=== PATIENT | male | born 1950 | race Caucasian/White ===

== ENCOUNTER 2017-06-03 20:05 | Inpatient (IN) | payer OTHER, MEDICARE ==
[~2017-06-03] VITALS: Ht 177.8 cm; Wt 64.0 kg
[2017-06-03 20:10] VITALS: BP 135/61; PULSE 99; RESP 22; TEMP 98; O2SAT 95
[2017-06-03 20:38] VITALS: BP 132/62; PULSE 107; RESP 26; O2SAT 92
[2017-06-03 20:39] VITALS: O2SAT 98
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
[2017-06-03] MEDS ORDERED: DONE5TAB7 PO (21:11)
[2017-06-03] MEDS ORDERED: PRED5TAB PO (21:11)
[2017-06-03] MEDS ORDERED: INSU100V2 SQ (21:11)
[2017-06-03] MEDS ORDERED: SIMV40TA PO (21:11)
[2017-06-03] MEDS ORDERED: LISI10TA3 PO (21:11)
[2017-06-03] MEDS ORDERED: LANTUS2P SQ (21:11)
[2017-06-03] MEDS ORDERED: LORA1TAB12 PO (21:11)
[2017-06-03] MEDS ORDERED: LAMI250T PO (21:11)
[2017-06-03] MEDS ORDERED: QUET1TAB7 PO ×2 (21:11)
[2017-06-03] MEDS ORDERED: VORI200T6 PO (21:11)
[2017-06-03] MEDS ORDERED: ATOR10TA15 PO (21:11)
[2017-06-03 21:25] LABS: AUTOMATED NEUTROPHIL # 7.7 TH/MM3 (1.8-7.7); BASOPHIL # 0.1 TH/MM3 (0-0.2); BASOPHIL % 0.6 % (0.0-2.0); EOSINOPHIL # 0.2 TH/MM3 (0-0.4); EOSINOPHIL % 1.8 % (0.0-4.0); HEMATOCRIT 37.2 % (39.0-51.0); HEMO FLAGS DIFF FINAL; LYMPH % 16.5 % (9.0-44.0); LYMPHOCYTE # 1.7 TH/MM3 (1.0-4.8); MEAN CELL VOLUME 91.8 FL (80.0-100.0); MEAN CORPUSCULAR HEMOGLOBIN 30.3 PG (27.0-34.0); NEUT % 74.1 % (16.0-70.0); PLATELET COUNT 407 TH/MM3 (150-450); RED BLOOD COUNT 4.06 MIL/MM3 (4.50-5.90); RED CELL DISTRIBUTION WIDTH 15.1 % (11.6-17.2); WHITE BLOOD COUNT 10.4 TH/MM3 (4.0-11.0)
[2017-06-03 21:35] LABS: ALT (GPT) 20 U/L (12-78); ANION GAP 8 MEQ/L (5-15); AST (GOT) 13 U/L (15-37); BICARBONATE 29.1 MEQ/L (21.0-32.0); BLOOD UREA NITROGEN 18 MG/DL (7-18); CHLORIDE 98 MEQ/L (98-107); GLOMERULAR FILTRATION RATE 94 ML/MIN (>89); POTASSIUM 3.5 MEQ/L (3.5-5.1); SODIUM (NA) 135 MEQ/L (136-145)
[2017-06-03 21:38] LABS: ALKALINE PHOSPHATASE 66 U/L (45-117); TOTAL BILIRUBIN ADULT 0.3 MG/DL (0.2-1.0)
[2017-06-03 21:41] LABS: ACETAMINOPHEN LESS THAN 2.0 MCG/ML (10.0-30.0)
[2017-06-03 22:00] VITALS: BP 110/60; PULSE 93; RESP 20; O2SAT 98
--- NOTE | 2017-06-03 22:27 | RADRPT ---
EXAM DATE/TIME: 06/03/2017 22:08 [facility] COMPARISON: No previous studies available for comparison. INDICATIONS : Cough and congestion. MEDICAL HISTORY : Chronic obstructive pulmonary disease. SURGICAL HISTORY : None. ENCOUNTER: Initial ACUITY: 2 days PAIN SCORE: 0/10 LOCATION: Bilateral chest FINDINGS: PA and lateral views of the chest demonstrate the lungs to be symmetrically aerated without evidence of mass, infiltrate or effusion. The cardiomediastinal contours are unremarkable. Osseous structure s are intact. CONCLUSION: No acute disease. Tomi Escoto Jr., MD on June 03, 2017 at 22:26 Board Certified Radiologist. This report was verified electronically.
[2017-06-03 22:28] LABS: BACTERIA, URINE RARE /hpf; BLOOD, URINE NEG (NEG); COMMENT (UR) CULT NOT INDICATED; CULTURE IF INDICATED CULT NOT INDICATED; GLUCOSE,URINE 1000 mg/dL (NEG); KETONE, URINE NEG (NEG); NITRITE,URINE NEG (NEG); SQUAMOUS EPITHELIAL CELL URINE 1 /hpf (0-5); URINE COLOR YELLOW (YELLW/STRAW)
[2017-06-04 01:00] VITALS: BP 105/55; PULSE 97; RESP 20; O2SAT 94
--- NOTE | 2017-06-04 05:15 | EKG ---
Date Performed: 06/03/2017 Time Performed: 20:41:33 PTAGE: 66 years EKG: Baseline artifact present SINUS TACHYCARDIA WITH OCCASIONAL SUPRAVENTRICULAR PREMATURE COMP LEXES POSSIBLE RIGHT VENTRICULAR CONDUCTION DELAY LEFT ANTERIOR FASCICULAR BLOCK ABNORMAL ECG NO PREVIOUS TRACING DOCTOR: Siddhartha Rankin Interpretating Date/Time 06/04/2017 05:13:43
[2017-06-04 06:00] VITALS: BP 102/59; PULSE 89; RESP 20; O2SAT 93
[2017-06-04 08:14] VITALS: BP 113/70; PULSE 85; RESP 26; O2SAT 89
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
[2017-06-04] MEDS ORDERED: ALUMINUM/MAGNESIUM/SIMETH 30 ML CUP PO PRN (12:00)
[2017-06-04] MEDS ORDERED: LORazepam 2 MG/ML VIAL IM PRN (12:00)
[2017-06-04] MEDS ORDERED: MAGNESIUM HYDROXIDE SUSP 30 ML CUP PO PRN (12:00)
[2017-06-04 12:19] VITALS: BP 108/60; PULSE 82; RESP 24; TEMP 98; O2SAT 99
--- NOTE | 2017-06-04 16:02 | PD.CONS ---
[facility] Request[facility] By Dr. Nugent from psychiatry service Reason for Consult Medical management history of COPD O2 dependent steroid dependent Diabetes type 2 insulin-requiring Primary Care Physician Natan Mota M.D. Diagnoses: History of Present Illness Patient is a 66-year-old male with history of diabetes type 2 insulin-requiring , hyperlipidemia, hypertension, COPD O2 dependent and steroid dependent on maintenance dose of prednisone 5 mg daily and O2 nasal cannula at 2 L, who looks older than stated age. His admitted on a voluntary basis under our psychiatry unit is up unit apparently patient was driving around the middle of the road in the community on a golf cart doing circles. Patient on exam is pleasant cooperative and is oriented 3. History discussed with patient and the son up on the phone. Apparently patient has been doing well O2 dependent steroid dependent COPD stable when when about 3 months prior to admission patient was admitted for nausea vomiting with diarrhea. Patient was found to be dehydrated and went into acute kidney injury with a very low sodium. since then per son has been in and out of the hospital 4 times. Family doesn't recall getting intubated though. son also states state that since then patient has been having deteriorating cognitively. He would go into violent behavior, will be noted to have increasing forgetfulness. son had workup done but however he was never told of the results of these tests. Patient also states history of psoriasis and was placed on Cosyntix shot 6 months ago once a month. And this apparently "kill my immune system." He develop fungal infection and was placed on voriconazole and Lamisil. On discussion with son patient has been in and out of the hospital for behavioral changes violent behavior increasing forgetfulness and last admission was about less than a week ago. Patient was transferred here to our med psych unit for further evaluation. At bedside patient is pleasant cooperative states still having diarrhea for the past 2 weeks now on and off. States that he had colonoscopy done in the [facility] for polyps were removed. Patient admitted here in our med psych unit for further evaluation. [facility] consulted for medical management of hypertension, diabetes type 2, COPD O2 and steroid dependent. Review of Systems Constitutional: DENIES: Diaphoretic episodes, Fatigue, Fever, Weight gain, Weight loss, Chills, Dizziness, Change in appetite, Night Sweats Endocrine: DENIES: Heat/cold intolerance, Polydipsia, Polyuria, Polyphagia Eyes: DENIES: Blurred vision, Diplopia, Eye inflammation, Eye pain, Vision loss , Photosensitivity, Double Vision Ears, nose, mouth, throat: DENIES: Tinnitus, Hearing loss, Vertigo, Nasal discharge, Oral lesions, Throat pain, Hoarseness, Ear Pain, Running Nose, Epistaxis, Sinus Pain, Toothache, Odynophagia Respiratory: COMPLAINS OF: Shortness of breath Cardiovascular: DENIES: Chest pain, Palpitations, Syncope, Dyspnea on Exertion , PND, Lower Extremity Edema, Orthopnea, Claudication Gastrointestinal: COMPLAINS OF: Diarrhea (on and off for the past 2 weeks), DENIES: Abdominal pain, Black stools, Bloody stools, Constipation, Nausea, Vomiting, Difficulty Swallowing, Anorexia Genitourinary: DENIES: Sexual dysfunction, Urinary frequency, Urinary incontinence, Urgency, Hematuria, Dysuria, Nocturia, Penile Discharge, Testicular Pain, Testicular Swelling Musculoskeletal: DENIES: Joint pain, Muscle aches, Stiffness, Joint Swelling, Back pain, Neck pain Integumentary: DENIES: Abnormal pigmentation, Nail changes, Pruritus, Rash Hematologic/lymphatic: DENIES: Bruising, Lymphadenopathy Immunologic/allergic: DENIES: Eczema, Urticaria Neurologic: DENIES: Abnormal gait, Headache, Localized weakness, Paresthesias, Seizures, Speech Problems, Tremor, Poor Balance Psychiatric: COMPLAINS OF: Depression, Agitation Past Family Social History Allergies: Coded Allergies: simvastatin (Verified Allergy, Unknown, 06/04/17) Past Medical History Hypertension COPD O2 dependent steroid dependent Diabetes type 2 insulin-requiring Fungal infection Past Surgical History Right elbow aspiration for some fluid years ago Reported Medications Currently on atorvastatin Lisinopril Seroquel Lorazepam Prednisone Lantus Humalog sliding scale Active Ordered Medications See EMR Family History Noncontributory Social History Drinks 12 beers a day Positive smoker quit recently Physical Exam Vital Signs Vital Signs Date Time Temp Pulse Resp B/P (MAP) Pulse Ox O2 Delivery O2 Flow Rate FiO2 06/04/17 12:19 Nasal Cannula 3.00 06/04/17 12:19 98.0 82 24 108/60 (76) 99 06/04/17 11:27 06/04/17 08:14 85 26 113/70 (84) 89 Room Air 06/04/17 06:00 89 20 102/59 (73) 93 Nasal Cannula 2.00 06/04/17 01:00 97 20 105/55 (72) 94 Nasal Cannula 06/03/17 22:00 93 20 110/60 (77) 98 Nasal Cannula 2.00 06/03/17 20:39 98 Nasal Cannula 2.00 06/03/17 20:38 107 26 132/62 (85) 92 Room Air 06/03/17 20:10 98.0 99 22 135/61 (85) 95 Room Air Physical Exam GENERAL: Awake alert oriented 3 no acute distress SKIN: Multiple superficial ecchymosis. HEAD: Atraumatic. Normocephalic. No temporal or scalp tenderness. EYES: Pupils equal round and reactive. Extraocular motions intact. No scleral icterus. No injection or drainage. ENT: Nose without bleeding, Throat without erythema, tonsillar hypertrophy or exudate. Uvula midline. Airway patent. NECK: Trachea midline. No JVD or lymphadenopathy. Supple, nontender, no meningeal signs. CARDIOVASCULAR: Regular rate and rhythm without murmurs, gallops, or rubs. RESPIRATORY: Decreased breath sounds bilaterally no wheezes no Rales GASTROINTESTINAL: Abdomen soft, non-tender, nondistended.. No guarding. MUSCULOSKELETAL: Extremities without clubbing, cyanosis, or edema. No joint tenderness, effusion, or edema noted. No calf tenderness. Negative Homans sign bilaterally. NEUROLOGICAL: Awake and alert. Cranial nerves II through XII intact. Motor and sensory grossly within normal limits. Five out of 5 muscle strength in all muscle groups. Normal speech. Laboratory Laboratory Tests Test 06/03/17 20:45 06/03/17 21:55 White Blood Count 10.4 Red Blood Count 4.06 Hemoglobin 12.3 Hematocrit 37.2 Mean Corpuscular Volume 91.8 Mean Corpuscular Hemoglobin 30.3 Mean Corpuscular Hemoglobin Concent 33.0 Red Cell Distribution Width 15.1 Platelet Count 407 Mean Platelet Volume 6.9 Neutrophils (%) (Auto) 74.1 Lymphocytes (%) (Auto) 16.5 Monocytes (%) (Auto) 7.0 Eosinophils (%) (Auto) 1.8 Basophils (%) (Auto) 0.6 Neutrophils # (Auto) 7.7 Lymphocytes # (Auto) 1.7 Monocytes # (Auto) 0.7 Eosinophils # (Auto) 0.2 Basophils # (Auto) 0.1 CBC Comment DIFF FINAL Differential Comment Blood Urea Nitrogen 18 Creatinine 0.82 Random Glucose 264 Total Protein 7.0 Albumin 3.0 Calcium Level 8.5 Alkaline Phosphatase 66 Aspartate Amino Transf (AST/SGOT) 13 Alanine Aminotransferase (ALT/SGPT) 20 Total Bilirubin 0.3 Sodium Level 135 Potassium Level 3.5 Chloride Level 98 Carbon Dioxide Level 29.1 Anion Gap 8 Estimat Glomerular Filtration Rate 94 Ammonia 20 Salicylates Level LESS THAN 1.7 Acetaminophen Level LESS THAN 2.0 Urine Color YELLOW Urine Turbidity CLEAR Urine pH 6.0 Urine Specific [place] 1.021 Urine Protein TRACE Urine Glucose (UA) 1000 Urine Ketones NEG Urine Occult Blood NEG Urine Nitrite NEG Urine Bilirubin NEG Urine Urobilinogen 2.0 Urine Leukocyte Esterase NEG Urine RBC 1 Urine WBC 3 Urine Squamous Epithelial Cells 1 Urine Amorphous Sediment RARE Urine Bacteria RARE Microscopic Urinalysis Comment CULT NOT INDICATED Urine Opiates Screen NEG Urine Barbiturates Screen NEG Urine Amphetamines Screen NEG Urine Benzodiazepines Screen NEG Urine Cocaine Screen NEG Urine Cannabinoids Screen NEG Result Diagram: 06/03/17204406/03/172044 Imaging Last Impressions Chest X-Ray 06/03/17 0000 Signed Impressions: Service Date/Time: Thursday, June 03, 2017 22:08 - CONCLUSION: No acute disease. Tomi Escoto Jr., MD Assessment and Plan Assessment and Plan 66-year-old male presenting with Acute Psychoses/delirium. Psychiatry following. Change in behavior since prolonged recurrent hospitalization On exam today patient is awake alert oriented and was able to give good history. Continue on cerebral. Management per psychiatry History of COPD O2 dependent and steroid dependent. We'll continue on O2 liters nasal cannula. Prednisone 5 mg daily maintenance dose. Per patient he was on pro-air and Advair. We'll restart metered-dose inhalers. History of fungal infection ? onychomycosis ? disseminated - ? Pulmonary source as patient was placed on systemic oral fungal medications. We'll need to get more information from previous admissions admissions from the [facility]. Requested son to come in tomorrow to sign release of medical information from previous hospitalizations. We will not start this medications Infectious disease specialist's service was consulted History of hyperlipidemia. Hypertension. Continue on lisinopril. Will ask nurse to verify as simvastatin listed as allergy area.however on review of medications is on atorvastatin. Diabetes type 2 insulin-requiring. Continue on Lantus 30 units at bedtime and Humalog sliding scale. Thank you for this consult we'll follow patient in-house with you Discussed Condition With Patient and son on the phone Damon Craig MD Jun 04, 2017 16:01
[2017-06-04] MEDS: ALBUTEROL SULFATE 90 MCG/ACT HFA 8 GM INHALER INH SCH (17:33)
[2017-06-04] MEDS: BUDESONIDE-FORMOTEROL 160/4.5 MCG INHALER INH SCH (17:34)
[2017-06-04 18:00] VITALS: BP 111/58; PULSE 81; RESP 18; TEMP 98.7; O2SAT 94
[2017-06-04] MEDS: QUEtiapine FUMARATE 25 MG TAB PO SCH (20:47)
[2017-06-04] MEDS: INSULIN DETEMIR 100 UNITS/ML VIAL SQ SCH (20:47)
[2017-06-04] MEDS ORDERED: VORICONAZOLE 200 MG TAB PO SCH (21:00)
[2017-06-04] MEDS ORDERED: TERBINAFINE 250 MG TAB PO SCH (21:00)
--- NOTE | 2017-06-04 21:47 | MB ---
cc: ARCHIE MORAN MD DATE OF CONSULTATION 06/04/[address] Nugent REASON FOR CONSULTATION The patient being treated with antifungal medication and prednisone. Please evaluate for mental status changes. HISTORY OF PRESENT ILLNESS This is a 66-year-old white male who was evaluated at the emergency department for altered mental status. The patient is unable to give me any meaningful information and therefore information is obtained from the medical record. He appears a little confused but could tell me that he has been receiving antifungal medication and he knew the name of the medicines, namely Voriconazole and also he has been on Diflucan for a fungal infection. He showed me his right forearm where he said there was an area with infection and he saw an ID doctor and gave me the name of the which is correct, in [place], who prescribed the medications for him. He tells me that the area is almost completely resolved. He reports to me that it was a patch of erythema. The patient is calm and cooperative. He is alert. He denies headache. He reportedly consumes alcohol and he also has history of COPD for which he gets treatment with prednisone. The patient has been noted in the medical record to have episodes of agitation and screaming episodes and that he screams profanities for hours. It is noted that he has lucid moments followed by these episodes. The patient was seen by Dr. Toure in [place]. I do not have information on the evaluation or workup that was performed. The patient tells me that he is going home tomorrow. PAST MEDICAL HISTORY COPD, oxygen-dependent, diabetes mellitus, hypertension, cataract surgery. ALLERGIES SIMVASTATIN. MEDICATIONS 1. Prinivil. 2. Prednisone 5 milligrams p.o. daily. 3. Levemir. 4. Seroquel. 5. Symbicort. 6. Albuterol inhaled. 7. Ativan p.r.n. SOCIAL HISTORY The patient smokes cigarettes. He drinks alcohol daily. Denies illicit drugs. FAMILY HISTORY Noncontributory. REVIEW OF SYSTEMS Negative on 10-point review except for the patient noting weight loss of 40 pounds over the past month. He also notes that he has had episodes of diarrhea and vomiting over the past few weeks. PHYSICAL EXAMINATION GENERAL: This is a frail-appearing cachectic male who is in no acute distress. He appears older than stated age. VITAL SIGNS: Include temperature of 98 degrees, BP 108/60, respirations 24, heart rate 82. HEENT: Head is atraumatic. Extraocular movements grossly intact, pupils reactive to light. No icterus. Oropharynx moist mucosa without lesions. NECK: Supple. No adenopathy. LUNGS: Bilateral wheezing. HEART: Regular S1-S2 without audible murmurs. No rubs or gallops. ABDOMEN: Flat, soft, no tenderness appreciated. RECTAL: Not performed. EXTREMITIES: No clubbing or cyanosis or edema. The patient has dried tree bark fissured chronic skin changes of the tibias. Multiple ecchymotic areas at the upper extremities. Also, the patient has multiple tiny excoriated scabs on the arms. No edema. Diffuse muscle wasting. SKIN: No diffuse rash. NEUROLOGIC: Patient alert and oriented. Grossly nonfocal. LABORATORY DATA WBC 10.4, platelets 407, 74% neutrophils, hemoglobin 12.3, creatinine 0.82, BUN 18, sodium 135. Liver function tests normal. IMAGING STUDIES Chest x-ray no acute disease. IMPRESSION Altered mental status. Uncertain etiology. I doubt the patient has an infectious etiology to his altered mental status given the fact that he has no fever, headache or elevated white blood cell count. He also has been on antifungal medicine for fungal skin infection at the right forearm which should not cause alteration in the mental status. It is not clear how long he was supposed to be on the antifungal medication. However, at this point given the appearance of his arm I doubt he needs continued antifungal treatment. If there is concern over a potential infection causing his altered mental status a consideration may be given to lumbar puncture for further evaluation and testing for syphilis. The patient is noted to consume lots of alcohol which could be contributing to his mental status issues and he also has severe COPD which may be contributing as well. At this point I do not think I have anything significant to add on this patient. However, I will try to contact his infectious disease caregiver in [place] and try to find out some more information about the Voriconazole treatment and whether or not other medical issues were entertained while treating him for fungal infection. Thank you for this consultation. If I find out any information that is pertinent I will follow the patient. Otherwise, I can be reconsulted if necessary. Archie Moran MD FD/ERASMO /5:50 PM /9:32 PM [email or web address]
[2017-06-05] MEDS: ALBUTEROL SULFATE 90 MCG/ACT HFA 8 GM INHALER INH SCH ×4 (06:09→17:33)
[2017-06-05] MEDS: ACETAMINOPHEN 325 MG TAB PO PRN ×2 (06:12→17:40)
[2017-06-05 06:16] VITALS: BP 120/57; PULSE 107; RESP 18; TEMP 97.5
[2017-06-05 06:30] VITALS: O2SAT 94
[2017-06-05] MEDS: predniSONE 5 MG TAB PO SCH (08:22)
[2017-06-05] MEDS: LISINOPRIL 10 MG TAB PO SCH (08:22)
[2017-06-05] MEDS: BUDESONIDE-FORMOTEROL 160/4.5 MCG INHALER INH SCH ×2 (08:22→21:00)
[2017-06-05] MEDS ORDERED: PNEUMOCOCCAL POLYVALENT INJ 25 MCG/0.5 ML SYR IM ONE (10:00)
[2017-06-05] MEDS ORDERED: INFLUENZA VIRUS VACCINE (QUADRIVALENT) 0.5 ML SYR IM ONE (10:00)
[2017-06-05 10:08] LABS: AUTOMATED NEUTROPHIL # 4.5 TH/MM3 (1.8-7.7); BASOPHIL # 0.1 TH/MM3 (0-0.2); BASOPHIL % 0.8 % (0.0-2.0); EOSINOPHIL # 0.3 TH/MM3 (0-0.4); EOSINOPHIL % 3.7 % (0.0-4.0); HEMATOCRIT 34.6 % (39.0-51.0); HEMO FLAGS DIFF FINAL; LYMPHOCYTE # 1.4 TH/MM3 (1.0-4.8); MEAN CELL VOLUME 92.2 FL (80.0-100.0); MEAN CORPUSCULAR HEMOGLOBIN 30.7 PG (27.0-34.0); MEAN CORPUSCULAR HGB CONC 33.3 % (32.0-36.0); MONO % 9.3 % (0.0-8.0); NEUT % 65.2 % (16.0-70.0); PLATELET COUNT 338 TH/MM3 (150-450); RED BLOOD COUNT 3.75 MIL/MM3 (4.50-5.90); RED CELL DISTRIBUTION WIDTH 15.3 % (11.6-17.2); WHITE BLOOD COUNT 6.9 TH/MM3 (4.0-11.0)
[2017-06-05] MEDS ORDERED: LORazepam 2 MG TAB PO PRN (10:30)
[2017-06-05] MEDS ORDERED: LORazepam 2 MG/ML VIAL IV PUSH PRN ×4 (10:30)
[2017-06-05] MEDS ORDERED: FLUMAZENIL 0.5 MG/5 ML VIAL IV PUSH PRN (10:30)
[2017-06-05] MEDS ORDERED: LORazepam 1 MG TAB PO PRN (10:30)
[2017-06-05 10:48] LABS: ANION GAP 5 MEQ/L (5-15); AST (GOT) 9 U/L (15-37); BICARBONATE 33.1 MEQ/L (21.0-32.0); BLOOD UREA NITROGEN 12 MG/DL (7-18); CHLORIDE 99 MEQ/L (98-107); GLOMERULAR FILTRATION RATE 130 ML/MIN (>89); POTASSIUM 3.7 MEQ/L (3.5-5.1); SODIUM (NA) 137 MEQ/L (136-145)
[2017-06-05 11:07] LABS: ALKALINE PHOSPHATASE 54 U/L (45-117); ALT (GPT) 17 U/L (12-78); HDL CHOLESTEROL 40.3 MG/DL (40.0-60.0); LDL CHOLESTEROL 49 MG/DL (0-99)
[2017-06-05 11:11] LABS: TOTAL BILIRUBIN ADULT 0.5 MG/DL (0.2-1.0)
--- NOTE | 2017-06-05 14:40 | HHI.PR ---
Subjective Remarks no complains of pain- "just dry skin" denies any diarrhea good po Objective Vitals Vital Signs Date Time Temp Pulse Resp B/P (MAP) Pulse Ox O2 Delivery O2 Flow Rate FiO2 06/05/17 09:00 Nasal Cannula 3.00 06/05/17 07:30 16 06/05/17 06:30 94 06/05/17 06:16 97.5 107 18 120/57 (78) 06/04/17 18:00 98.7 81 18 111/58 (75) 94 I/O 06/04/17 06/04/17 06/04/17 06/05/17 06/05/17 06/05/17 07:00 15:00 23:00 07:00 15:00 23:00 Intake Total 240 ml 840 ml 180 ml 720 ml Balance 240 ml 840 ml 180 ml 720 ml Intake Oral 240 ml 840 ml 180 ml 720 ml # Voids 2 1 # Bowel Movements 1 1 Result Diagram: 06/05/17 0935 06/05/17 0935 Imaging Last Impressions Chest X-Ray 06/03/17 0000 Signed Impressions: Service Date/Time: Saturday, June 03, 2017 22:08 - CONCLUSION: No acute disease. Tomi Escoto Jr., MD Objective Remarks awake and alert, no acute distress, on 2 LNC very dry skin anicteric lungs- no rales or wheezes regular rhythm abdmen soft extremities no edmea A/P Assessment and Plan 66-year-old male presenting with Acute Psychoses/delirium. - improved Psychiatry following. History of COPD O2 dependent and steroid dependent. We'll continue on O2 liters nasal cannula. Prednisone 5 mg daily maintenance dose. Per patient he was on pro-air and Advair. continue MDIs History of fungal infection ? onychomycosis ? disseminated - ? Pulmonary source as patient was placed on systemic oral fungal medications. We'll need to get more information from previous admissions admissions from the [facility]. Requested son to come in tomorrow to sign release of medical information from previous hospitalizations. We will not start this medications appreciate Dr. cerda seeing patient History of hyperlipidemia. Hypertension. Continue on lisinopril. Will ask nurse to verify as simvastatin listed as allergy area.however on review of medications is on atorvastatin. Diabetes type 2 insulin-requiring. Continue on Lantus 30 units at bedtime and Humalog sliding scale. good readings. a1C pending patient up and ambulating Damon Craig MD Jun 05, 2017 14:40
--- NOTE | 2017-06-05 15:14 | HHI.PYPN ---
Subjective Remarks Patient seen for follow-up, chart reviewed. Patient is a 66 y/o man, , unemployed on social security benefits, domiciled with , with past psychiatric history of bipolar disorder and anxiety as per patient, prior psychiatric hospitalization, no prior suicide attempts or self injurious behavior who was brought in by due to behavioral changes over the last three months, admitted to the ICU for COPD, and noted to have multiple episodes of confusion, episodes of agitation and screaming in the context of recently started antifungal medications and steroids which he was transferred to the medical/psychiatry unit for further evaluation and management. Patient was found lying on the hospital bed, calm and cooperative with interview. Patient states that he was feeling "better than I was..I was feeling cloudy a couple of months ago. He states that his had brought him to the hospital because he was noted to be forgetful, and "I wanted to fight everybody..but that's not like me". He reports having episodes of "screaming and hollering...I couldn't stop it" but reports being aware when he was doing it. He reports it last happened a couple of days ago. He reports having had decreased sleep, racing thougts (last time being 1-2 days ago), decreased energy and concentriaon, no change in appetite, "normal" mood. He also endorsed having had SI for the past 1-2 months and also having tried to cut himself a couple of days ago. Currently he denies SI but last time was yesterday, denies HI, AVH or delusions at this time. Family psychiatric history: reports bipolar and depression in the famly but unspecified who, denies suicides in the family Past psychiatric history: bipolar disorder, anxiety as per patient, one prior psychiatric admisssion ("years ago"), no prior SA or self injurious behavior, no history of abuse. Reports outpatient provider, Dr. Iraheta, last seen 2 weeks ago. Recent medications: lorazepam, venlafaxine, depakote - which he last took one week ago. Substance use history: ETOH daily about 12 beers, Tobacco (+), denies use of any other substance. Past medical history: HTN, COPD, DM, reports history psoriasis on Cogintix monthly IM for the past 12 months, on Voriconazole and Lamisil Allergies: simvastatin Social history: , two children, unemployed on social [employer] benefits, domiciled with , highest education: 9th grade. Denies any legal history. Review of Systems Except as stated in HPI: all other systems reviewed are Neg Mental Status Examination Appearance: Appropriate Consciousness: Alert Orientation: x4 Motor Activity: Normal gait Speech: Unremarkable Language: Adequate Fund of Knowledge: Adequate Attention and Concentration: Adequate Memory: Unremarkable Mood: Anxious Affect: Anxious Thought Process & Associations: Intact, Linear Thought Content: Appropriate Hallucination Type: None Delusion Type: None Suicidal Ideation: Yes (denies today) Suicidal Plan: No Suicidal Intention: No Homicidal Ideation: No Homicidal Plan: No Homicidal Intention: No Insight: Fair Judgment: Impulsive Results Labs labs reviewed Test 06/05/17 09:35 White Blood Count 6.9 TH/MM3 Red Blood Count 3.75 MIL/MM3 Hemoglobin 11.5 GM/DL Hematocrit 34.6 % Mean Corpuscular Volume 92.2 FL Mean Corpuscular Hemoglobin 30.7 PG Mean Corpuscular Hemoglobin Concent 33.3 % Red Cell Distribution Width 15.3 % Platelet Count 338 TH/MM3 Mean Platelet Volume 6.6 FL Neutrophils (%) (Auto) 65.2 % Lymphocytes (%) (Auto) 21.0 % Monocytes (%) (Auto) 9.3 % Eosinophils (%) (Auto) 3.7 % Basophils (%) (Auto) 0.8 % Neutrophils # (Auto) 4.5 TH/MM3 Lymphocytes # (Auto) 1.4 TH/MM3 Monocytes # (Auto) 0.6 TH/MM3 Eosinophils # (Auto) 0.3 TH/MM3 Basophils # (Auto) 0.1 TH/MM3 CBC Comment DIFF FINAL Differential Comment Blood Urea Nitrogen 12 MG/DL Creatinine 0.62 MG/DL Random Glucose 160 MG/DL Total Protein 6.1 GM/DL Albumin 2.6 GM/DL Calcium Level 8.3 MG/DL Alkaline Phosphatase 54 U/L Aspartate Amino Transf (AST/SGOT) 9 U/L Alanine Aminotransferase (ALT/SGPT) 17 U/L Total Bilirubin 0.5 MG/DL Sodium Level 137 MEQ/L Potassium Level 3.7 MEQ/L Chloride Level 99 MEQ/L Carbon Dioxide Level 33.1 MEQ/L Anion Gap 5 MEQ/L Estimat Glomerular Filtration Rate 130 ML/MIN Triglycerides Level 141 MG/DL Cholesterol Level 117 MG/DL LDL Cholesterol 49 MG/DL HDL Cholesterol 40.3 MG/DL Cholesterol/HDL Ratio 2.90 RATIO Vitamin B12 Level 260 PG/ML 25-Hydroxy Vitamin D Total 20.3 ng/ML Thyroid Stimulating Hormone 3rd Gen 0.725 uIU/ML Rapid Plasma Reagin NON-REACTIVE Vitals/IOs Vital Signs Date Time Temp Pulse Resp B/P (MAP) Pulse Ox O2 Delivery O2 Flow Rate FiO2 06/05/17 09:00 Nasal Cannula 3.00 06/05/17 07:30 16 06/05/17 06:30 94 06/05/17 06:16 97.5 107 120/57 (78) Intake and Output 06/05/17 06/05/17 06/06/17 08:00 16:00 00:00 Intake Total 180 ml 720 ml Balance 180 ml 720 ml Assessment & Plan Problem List: (1) Unspecified psychosis ICD Codes: F29 - Unspecified psychosis not due to a substance or known physiological condition Assessment & Plan Patient is a 66 y/o man with reported history of bipolar disorder and anxiety who was noted to have episodes of agitation, screaming for the past several months which he was brought in by , admittted to the ICU for COPD, and subsequently transferred to the medical/psychiatry unit for further management. Patient at this time endorses recent SI and some depressive symptoms but has not exhibited episodes of screaming or agitation. He denies any perceptual disturbances at this time. Continue current treatment for now. Recommendations as per primary medical team. Collateral information pending for recent medicatione regimen and recent events prior to admission. Discharge planning in progress. Justification for Cont. Inpt. At risk for further decompensation if at lower level of care Discharge Planning Patient to return back to residence once medically and psychiatrically clear. Hayden Sam MD Jun 05, 2017 15:14
[2017-06-05 16:03] LABS: HEMOGLOBIN A1a 0.9 %; HEMOGLOBIN A1b 2.1 %; HEMOGLOBIN Ao 82.7 %; HEMOGLOBIN LA1C 2.8 %; HEMOGLOBIN P3 5.8 %
[2017-06-05 18:00] VITALS: BP 90/54; PULSE 87; RESP 18; TEMP 97.8; O2SAT 97
--- NOTE | 2017-06-05 18:01 | EKG ---
Date Performed: 06/05/2017 Time Performed: 07:44:36 PTAGE: 66 years EKG: Sinus rhythm WITH OCCASIONAL SUPRAVENTRICULAR PREMATURE COMPLEXES MARKED LEFT AXIS DEVIATION INCOMPLETE RIGHT BUN DLE BRANCH BLOCK ABNORMAL ECG PREVIOUS TRACING : 06/03/2017 20.41 DOCTOR: Ferdinand Henderson Interpretating Date/Time 06/05/2017 17:58:31
[2017-06-05] MEDS: LACTIC ACID (AMMONIUM LACTATE) 12% LOTION 225 GM BTL TOPICAL SCH (21:00)
[2017-06-05] MEDS: QUEtiapine FUMARATE 25 MG TAB PO SCH (21:00)
[2017-06-05] MEDS: INSULIN DETEMIR 100 UNITS/ML VIAL SQ SCH (21:00)
[2017-06-06 05:04] VITALS: BP 106/67; PULSE 95; RESP 16; TEMP 98.1; O2SAT 98
[2017-06-06] MEDS: ALBUTEROL SULFATE 90 MCG/ACT HFA 8 GM INHALER INH SCH ×4 (06:00→18:05)
[2017-06-06] MEDS: LACTIC ACID (AMMONIUM LACTATE) 12% LOTION 225 GM BTL TOPICAL SCH ×2 (08:51→22:35)
[2017-06-06] MEDS: LISINOPRIL 10 MG TAB PO SCH (08:51)
[2017-06-06] MEDS: predniSONE 5 MG TAB PO SCH (08:51)
[2017-06-06] MEDS: BUDESONIDE-FORMOTEROL 160/4.5 MCG INHALER INH SCH ×2 (08:51→20:35)
--- NOTE | 2017-06-06 13:46 | HHI.PR ---
Subjective Remarks states he feels "great" no complains good po Objective Vitals Vital Signs Date Time Temp Pulse Resp B/P (MAP) Pulse Ox O2 Delivery O2 Flow Rate FiO2 06/06/17 09:59 Nasal Cannula 3.00 06/06/17 05:04 98.1 95 16 106/67 (80) 98 06/05/17 20:00 Nasal Cannula 3.00 06/05/17 18:00 97.8 87 18 90/54 (66) 97 I/O 06/05/17 06/05/17 06/05/17 06/06/17 06/06/17 06/06/17 07:00 15:00 23:00 07:00 15:00 23:00 Intake Total 180 ml 720 ml 840 ml 0 ml 480 ml Output Total 1000 ml Balance 180 ml 720 ml 840 ml -1000 ml 480 ml Intake Oral 180 ml 720 ml 840 ml 0 ml 480 ml Output Urine Total 1000 ml # Voids 1 1 # Bowel Movements 1 Result Diagram: 06/05/17 0935 06/05/17 0935 Imaging Last Impressions Chest X-Ray 06/03/17 0000 Signed Impressions: Service Date/Time: Saturday, June 03, 2017 22:08 - CONCLUSION: No acute disease. Tomi Escoto Jr., MD Objective Remarks awake and alert, no acute distress, on 02 2 LNC very dry skin anicteric lungs- no rales or wheezes regular rhythm abdomen soft extremities no edema A/P Assessment and Plan 66-year-old male presenting with Acute Psychoses/delirium. - improved Psychiatry following. History of COPD O2 dependent and steroid dependent. We'll continue on O2 liters nasal cannula. Prednisone 5 mg daily maintenance dose. Per patient he was on pro-air and Advair. continue MDIs History of fungal infection ? onychomycosis ? disseminated - ? Pulmonary source as patient was placed on systemic oral fungal medications. We'll need to get more information from previous admissions admissions from the [facility]. Requested son to come in tomorrow to sign release of medical information from previous hospitalizations. We will not start this medications appreciate Dr. cerda seeing patient History of hyperlipidemia. Hypertension. Continue on lisinopril. Will ask nurse to verify as simvastatin listed as allergy area.however on review of medications is on atorvastatin. Diabetes type 2 insulin-requiring. Continue on Lantus 30 units at bedtime and Humalog sliding scale. good readings. a1C 6.8 one time reading today of 216. will continue regimen and monitor Hypocalcemia/low Vitamin D level start oscal + Vit D daily patient up and ambulating Damon Craig MD Jun 06, 2017 13:46
[2017-06-06] MEDS ORDERED: LOW DOSE INSULIN NOVOLOG SUPPLEMENTAL SCALE SQ SCH (14:38)
[2017-06-06] MEDS ORDERED: PLEASE DISCONTINUE PREVIOUS SUPPLEMENTAL SCALE INSULIN ORDERS ONE (14:45)
[2017-06-06] MEDS ORDERED: GLUCAGON 1 MG/ML VIAL OTHER PRN (14:45)
[2017-06-06] MEDS ORDERED: DEXTROSE 50% IN WATER 50 ML VIAL(D50) IV PUSH PRN (14:45)
--- NOTE | 2017-06-06 15:33 | HHI.PYPN ---
Subjective Remarks Patient was seen and case discussed with nursing. Pt is irritable blaming his family for his circumstances. He remains on the CIWA scale, no tremor, visual hallucinating, change in mental status or elevated vital signs. Denies AH/VH/SI /HI Mental Status Examination Appearance: Appropriate Consciousness: Alert Orientation: x4 Motor Activity: Normal gait Speech: Unremarkable Language: Adequate Fund of Knowledge: Adequate Attention and Concentration: Adequate Memory: Unremarkable Mood: Oppositional, Anxious Affect: Anxious Thought Process & Associations: Intact, Linear Thought Content: Appropriate Hallucination Type: None Delusion Type: None Suicidal Ideation: Yes (denies today) Suicidal Plan: No Suicidal Intention: No Homicidal Ideation: No Homicidal Plan: No Homicidal Intention: No Insight: Fair Judgment: Impulsive Results Vitals/IOs Vital Signs Date Time Temp Pulse Resp B/P (MAP) Pulse Ox O2 Delivery O2 Flow Rate FiO2 06/06/17 09:59 Nasal Cannula 3.00 06/06/17 05:04 98.1 95 16 106/67 (80) 98 Intake and Output 06/06/17 06/06/17 06/07/17 08:00 16:00 00:00 Intake Total 240 ml 240 ml Output Total 1000 ml Balance -760 ml 240 ml Assessment & Plan Problem List: (1) Unspecified psychosis ICD Codes: F29 - Unspecified psychosis not due to a substance or known physiological condition Assessment & Plan Continue current treatment plan Justification for Cont. Inpt. Patient would decompensate in a less restricting setting. Gerber Blakely DO Jun 06, 2017 15:33
[2017-06-06] MEDS ORDERED: INSULIN ASPART 1,000 UNITS/10 ML VIAL SQ SCH (17:00)
[2017-06-06 18:00] VITALS: BP 109/56; PULSE 85; RESP 16; TEMP 98.2; O2SAT 98
[2017-06-06] MEDS: ACETAMINOPHEN 325 MG TAB PO PRN (20:35)
[2017-06-06] MEDS: QUEtiapine FUMARATE 25 MG TAB PO SCH (20:35)
[2017-06-06] MEDS: LORazepam 1 MG TAB PO PRN (20:40)
[2017-06-06] MEDS: INSULIN DETEMIR 100 UNITS/ML VIAL SQ SCH (20:44)
[2017-06-06] MEDS ORDERED: ZOLPIDEM TARTRATE 10 MG TAB PO ONE (22:30)
[2017-06-07] MEDS: ALBUTEROL SULFATE 90 MCG/ACT HFA 8 GM INHALER INH SCH ×4 (05:50→17:54)
[2017-06-07 06:31] VITALS: BP 91/52; PULSE 116; RESP 18; TEMP 97.5; O2SAT 93
[2017-06-07] MEDS: LOW DOSE INSULIN NOVOLOG SUPPLEMENTAL SCALE SQ SCH ×2 (08:00→16:00)
[2017-06-07] MEDS: predniSONE 5 MG TAB PO SCH (10:04)
[2017-06-07] MEDS: LACTIC ACID (AMMONIUM LACTATE) 12% LOTION 225 GM BTL TOPICAL SCH ×2 (10:04→20:41)
[2017-06-07] MEDS: CALCIUM/VITAMIN D 250 MG/125 U TAB PO SCH (10:05)
[2017-06-07] MEDS: BUDESONIDE-FORMOTEROL 160/4.5 MCG INHALER INH SCH ×2 (10:05→20:42)
[2017-06-07] MEDS: LISINOPRIL 10 MG TAB PO SCH (10:05)
--- NOTE | 2017-06-07 12:08 | HHI.PR ---
Subjective Remarks patient denies hearing voices pleasant and cooperative up and ambulating on the hallways Objective Vitals Vital Signs Date Time Temp Pulse Resp B/P (MAP) Pulse Ox O2 Delivery O2 Flow Rate FiO2 06/07/17 06:31 97.5 116 18 91/52 (65) 93 06/06/17 22:58 Nasal Cannula 06/06/17 18:00 98.2 85 16 109/56 (73) 98 I/O 06/06/17 06/06/17 06/06/17 06/07/17 06/07/17 06/07/17 07:00 15:00 23:00 07:00 15:00 23:00 Intake Total 0 ml 480 ml 1560 ml 240 ml Output Total 1000 ml 1 ml Balance -1000 ml 480 ml 1559 ml 240 ml Intake Oral 0 ml 480 ml 1560 ml 240 ml Output Urine Total 1000 ml 1 ml # Voids 1 3 Result Diagram: 06/05/17 0935 06/05/17 0935 Imaging Last Impressions Chest X-Ray 06/03/17 0000 Signed Impressions: Service Date/Time: Saturday, June 03, 2017 22:08 - CONCLUSION: No acute disease. Tomi Escoto Jr., MD Objective Remarks awake and alert, no acute distress, on 2 LNC very dry skin anicteric lungs- no rales or wheezes regular rhythm abdomen soft extremities no edema A/P Assessment and Plan 66-year-old male presenting with Acute Psychoses/delirium. - Resolved Psychiatry following. History of COPD O2 dependent and steroid dependent. We'll continue on O2 liters nasal cannula. Prednisone 5 mg daily maintenance dose. Per patient he was on pro-air and Advair. continue MDIs History of fungal infection ? onychomycosis ? disseminated - ? Pulmonary source as patient was placed on systemic oral fungal medications. We'll need to get more information from previous admissions admissions from the [facility]. Requested son to come in tomorrow to sign release of medical information from previous hospitalizations.- will ask nurse to ff up tomorrow- Thursday We will not start this medications appreciate Dr. Moran seeing patient History of hyperlipidemia. Hypertension. Continue on lisinopril. Will ask nurse to verify as simvastatin listed as allergy area.however on review of medications is on atorvastatin. Diabetes type 2 insulin-requiring. Continue on Lantus 30 units at bedtime and Humalog sliding scale. good readings. A1C 6.8 good lipid panel Hypocalcemia/low Vitamin D level Oscal + Vit D daily patient up and ambulating Damon Craig MD Jun 07, 2017 12:08
--- NOTE | 2017-06-07 16:11 | HHI.PYPN ---
Subjective Remarks Patient was seen and case discussed with nursing. Pt had a visit from his who left in tears. Pt was seen arguing with her. Pt is irritable during the interview blaming her and his family for his admission. Insight is very poor, minimizes his history. No outbursts with staff, tolerating medication well. Mental Status Examination Appearance: Appropriate Consciousness: Alert Orientation: x4 Motor Activity: Normal gait Speech: Unremarkable Language: Adequate Fund of Knowledge: Adequate Attention and Concentration: Adequate Memory: Unremarkable Mood: Oppositional, Anxious Affect: Irritable Thought Process & Associations: Intact, Linear Thought Content: Appropriate Hallucination Type: None Delusion Type: None Suicidal Ideation: No Suicidal Plan: No Suicidal Intention: No Homicidal Ideation: No Homicidal Plan: No Homicidal Intention: No Insight: Fair Judgment: Impulsive Results Vitals/IOs Vital Signs Date Time Temp Pulse Resp B/P (MAP) Pulse Ox O2 Delivery O2 Flow Rate FiO2 06/07/17 06:31 97.5 116 18 91/52 (65) 93 06/06/17 22:58 Nasal Cannula 06/06/17 09:59 3.00 Intake and Output 06/07/17 06/07/17 06/08/17 08:00 16:00 00:00 Intake Total 240 ml Balance 240 ml Assessment & Plan Problem List: (1) Unspecified psychosis ICD Codes: F29 - Unspecified psychosis not due to a substance or known physiological condition Assessment & Plan Continue current treatment plan Justification for Cont. Inpt. Pt would decompensate in a less restrictive setting Gerber Blakely DO Jun 07, 2017 16:10
[2017-06-07 18:00] VITALS: BP 105/61; PULSE 85; RESP 18; TEMP 98; O2SAT 94
[2017-06-07] MEDS: QUEtiapine FUMARATE 25 MG TAB PO SCH (20:41)
[2017-06-07] MEDS: LORazepam 1 MG TAB PO PRN (20:41)
[2017-06-07] MEDS: INSULIN DETEMIR 100 UNITS/ML VIAL SQ SCH (20:54)
[2017-06-08] MEDS: ALBUTEROL SULFATE 90 MCG/ACT HFA 8 GM INHALER INH SCH ×4 (05:45→16:37)
[2017-06-08] MEDS: ACETAMINOPHEN 325 MG TAB PO PRN (05:45)
[2017-06-08 06:24] VITALS: BP 89/51; PULSE 87; RESP 16; TEMP 97.6; O2SAT 99
[2017-06-08] MEDS: LOW DOSE INSULIN NOVOLOG SUPPLEMENTAL SCALE SQ SCH ×2 (07:28→11:17)
[2017-06-08] MEDS: LISINOPRIL 10 MG TAB PO SCH (07:40)
[2017-06-08] MEDS: LACTIC ACID (AMMONIUM LACTATE) 12% LOTION 225 GM BTL TOPICAL SCH ×2 (09:00→20:46)
[2017-06-08] MEDS: CALCIUM/VITAMIN D 250 MG/125 U TAB PO SCH (09:18)
[2017-06-08] MEDS: BUDESONIDE-FORMOTEROL 160/4.5 MCG INHALER INH SCH ×2 (09:18→20:47)
[2017-06-08] MEDS: predniSONE 5 MG TAB PO SCH (09:18)
--- NOTE | 2017-06-08 14:21 | HHI.PR ---
Subjective Remarks doing great feels great good readings up and ambulating Objective Vitals Vital Signs Date Time Temp Pulse Resp B/P (MAP) Pulse Ox O2 Delivery O2 Flow Rate FiO2 06/08/17 10:52 93 Nasal Cannula 2.00 06/08/17 06:24 97.6 87 16 89/51 (64) 99 06/08/17 01:58 93 Nasal Cannula 3.00 06/07/17 18:00 98.0 85 18 105/61 (76) 94 I/O 06/07/17 06/07/17 06/07/17 06/08/17 06/08/17 06/08/17 07:00 15:00 23:00 07:00 15:00 23:00 Intake Total 240 ml 1200 ml 360 ml Balance 240 ml 1200 ml 360 ml Intake Oral 240 ml 1200 ml 360 ml # Voids 3 5 3 # Bowel Movements 1 Result Diagram: 06/05/17 0935 06/05/17 0935 Imaging Last Impressions Chest X-Ray 06/03/17 0000 Signed Impressions: Service Date/Time: Saturday, June 03, 2017 22:08 - CONCLUSION: No acute disease. Tomi Escoto Jr., MD Objective Remarks awake and alert, no acute distress, on 2 LNC very dry skin anicteric lungs- no rales or wheezes regular rhythm abdomen soft extremities no edema A/P Assessment and Plan 66-year-old male presenting with Acute Psychoses/delirium. - Resolved Psychiatry following. History of COPD O2 dependent and steroid dependent. We'll continue on O2 liters nasal cannula. Prednisone 5 mg daily maintenance dose. Per patient he was on pro-air and Advair. continue MDIs History of fungal infection ? onychomycosis ? disseminated - ? Pulmonary source as patient was placed on systemic oral fungal medications. We'll need to get more information from previous admissions admissions from the [facility]. Requested son to come in tomorrow to sign release of medical information from previous hospitalizations.- will ask nurse to ff up tomorrow- Thursday We will not start this medications appreciate Dr. Moran seeing patient- will not start any meds History of hyperlipidemia. Hypertension. Continue on lisinopril. Will ask nurse to verify as simvastatin listed as allergy area.however on review of medications is on atorvastatin. Diabetes type 2 insulin-requiring. Continue on Lantus 30 units at bedtime and Humalog sliding scale. good readings. A1C 6.8 good lipid panel Hypocalcemia/low Vitamin D level Oscal + Vit D daily patient up and ambulating confirmed + allergy to zocor HHH sings off If DC continue home meds + Ca + VIt ff up with PCP- Damon Matthew MD Jun 08, 2017 14:21
--- NOTE | 2017-06-08 14:23 | PD.TTN ---
Patient Problems 1. Discharge planning 2. Medication compliance 3. Knowledge deficit 4. Lack of coping skills Progress Toward Goals Provider Input: Patient is reaching stabization, would like counselor to contact patient's to assess safety concerns Psychiatric Counselors Present: MINERVA Regalado Psych Therapist Input: Counselor will reachout to patient's , discuss discharge issues with patient and his Group Spec/RT/OT/PINZON Present: Bronson Stein OT Group Spec/RT/OT/PINZON Input: Patient has not attended groups or activities Documentation Scribe: MINERVA Regalado Sandra LMHC Jun 08, 2017 14:23
--- NOTE | 2017-06-08 16:23 | HHI.PYPN ---
Subjective Remarks Patient seen follow, chart reviewed. Discussion with nursing staff reported that patient has been eating, no behavioral dyscontrol since admission, no episodes of agitation. Patient found sitting in hospital bed, cooperative. Patient states that his weekend have been "good" and recalls having had argued with his last evening stating "she don't care how I'm doing". Patient denies any sedative depressive symptoms, denies any manic or psychotic symptoms at this time. Patient denies SI, HI, AVH or delusions. Patient states that he is tolerating medications well and denies any adverse drug reactions. Patient reports being aware of his previous behavior prior to his admission and states that he no longer feels that way. Review of Systems Except as stated in HPI: all other systems reviewed are Neg Mental Status Examination Appearance: Appropriate Consciousness: Alert Orientation: x4 Motor Activity: Normal gait Speech: Unremarkable Language: Adequate Fund of Knowledge: Adequate Attention and Concentration: Adequate Memory: Unremarkable Mood: Appropriate Affect: Appropriate Thought Process & Associations: Intact, Linear Thought Content: Appropriate Hallucination Type: None Delusion Type: None Suicidal Ideation: No Suicidal Plan: No Suicidal Intention: No Homicidal Ideation: No Homicidal Plan: No Homicidal Intention: No Insight: Fair Judgment: Impulsive Results Vitals/IOs Vital Signs Date Time Temp Pulse Resp B/P (MAP) Pulse Ox O2 Delivery O2 Flow Rate FiO2 06/08/17 10:52 93 Nasal Cannula 2.00 06/08/17 06:24 97.6 87 16 89/51 (64) Intake and Output 06/08/17 06/08/17 06/09/17 08:00 16:00 00:00 Intake Total 1200 ml Balance 1200 ml Assessment & Plan Problem List: (1) Unspecified psychosis ICD Codes: F29 - Unspecified psychosis not due to a substance or known physiological condition Assessment & Plan Patient at this time has not had any behavioral dyscontrol since admission, no episodes of screaming or agitation as reported prior to his admission, without endorsed any mood symptoms or psychotic symptoms. We'll continue current treatment regimen with possible discharge tomorrow back to . Discharge planning in progress. Justification for Cont. Inpt. At risk for further decompensation if at lower level of care Discharge Planning Patient to return back to his residence once psychiatrically cleared. Hayden Sam MD Jun 08, 2017 16:23
[2017-06-08 18:10] VITALS: BP 101/51; PULSE 81; RESP 16; TEMP 97.7; O2SAT 97
[2017-06-08] MEDS: LORazepam 1 MG TAB PO PRN (20:45)
[2017-06-08] MEDS: INSULIN DETEMIR 100 UNITS/ML VIAL SQ SCH (20:46)
[2017-06-08] MEDS: QUEtiapine FUMARATE 25 MG TAB PO SCH (20:46)
[2017-06-09] MEDS: ALBUTEROL SULFATE 90 MCG/ACT HFA 8 GM INHALER INH SCH ×3 (05:31→10:35)
[2017-06-09 06:01] VITALS: BP 109/56; PULSE 87; RESP 16; TEMP 97.7; O2SAT 98
[2017-06-09] MEDS: LOW DOSE INSULIN NOVOLOG SUPPLEMENTAL SCALE SQ SCH (08:00)
[2017-06-09] MEDS: LISINOPRIL 10 MG TAB PO SCH (09:00)
[2017-06-09] MEDS ORDERED: Albuterol Hfa Inh INH (09:28)
[2017-06-09] MEDS ORDERED: LEVEMIR SQ (09:28)
[2017-06-09] MEDS ORDERED: LISI10TA3 PO (09:28)
[2017-06-09] MEDS ORDERED: Lactic Acid 12% Lotion TOPICAL (09:28)
[2017-06-09] MEDS ORDERED: Budeson-Formot 160-4.5 Mg Inh INH (09:28)
[2017-06-09] MEDS ORDERED: SERO25TA PO (09:28)
[2017-06-09] MEDS ORDERED: CALC250 PO (09:28)
[2017-06-09] MEDS ORDERED: NOVOLOGSS SQ (09:28)
[2017-06-09] MEDS ORDERED: PRED5TAB PO (09:28)
[2017-06-09] MEDS: CALCIUM/VITAMIN D 250 MG/125 U TAB PO SCH (10:30)
[2017-06-09] MEDS: predniSONE 5 MG TAB PO SCH (10:30)
[2017-06-09] MEDS: BUDESONIDE-FORMOTEROL 160/4.5 MCG INHALER INH SCH (10:35)
[2017-06-09] MEDS: LACTIC ACID (AMMONIUM LACTATE) 12% LOTION 225 GM BTL TOPICAL SCH (10:37)
[2017-06-09 10:45] VITALS: BP 113/65; PULSE 87
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
== END 2017-06-09 13:45 | disposition home or self-care (01) | DRG 897 ==
LOC: NEPC 20:05 → NEDA 06-04 10:22 → H4EA 06-04 11:45
PROVIDERS: ADMIT Student in an Organized Health Care Education/Training Program; ATTEND Student in an Organized Health Care Education/Training Program
DX: F19.24 Other psychoactive substance dependence with psychoactive substance-induced mood disorder (principal); F10.10 Alcohol abuse, uncomplicated; N17.9 Acute kidney failure, unspecified; F05 Delirium due to known physiological condition; R45.851 Suicidal ideations; J44.9 Chronic obstructive pulmonary disease, unspecified; E83.51 Hypocalcemia; E11.9 Type 2 diabetes mellitus without complications; F29 Unspecified psychosis not due to a substance or known physiological condition; E78.5 Hyperlipidemia, unspecified; E86.0 Dehydration; F31.9 Bipolar disorder, unspecified; I10 Essential (primary) hypertension; Z79.4 Long term (current) use of insulin; Z79.52 Long term (current) use of systemic steroids; Z99.81 Dependence on supplemental oxygen
CPT/HCPCS: 71020; 80053; 80061; 80307; 81001; 82140; 82306; 82607; 82948; 83036; 84443; 85025; 86592; 90686; 90732; 93005; J1815; J7512; Q2038